=== PATIENT | female | born 1955 | race Caucasian/White ===

== ENCOUNTER 2016-10-06 09:47 | Outpatient (CLI) | payer MEDICAID | END 2016-10-06 09:48 | disposition home or self-care (01) | DX: R73.01 Impaired fasting glucose (principal); Z13.220 Encounter for screening for lipoid disorders; B19.20 Unspecified viral hepatitis C without hepatic coma; Z12.11 Encounter for screening for malignant neoplasm of colon; Z12.4 Encounter for screening for malignant neoplasm of cervix ==

== ENCOUNTER 2016-10-17 14:41 | Emergency (ER) | payer MEDICAID ==
[2016-10-17] MEDS ORDERED: oxyCOD/ACETAMIN 5 MG/325 MG TABLET PO STA (15:16)
[2016-10-17] MEDS ORDERED: oxyCOD/ACETAMIN 5 MG/325 MG TABLET PO ONE (15:29)
== END 2016-10-17 17:26 | disposition home or self-care (01) ==
DX: J40 Bronchitis, not specified as acute or chronic (principal); R07.9 Chest pain, unspecified; R05 Cough; J44.9 Chronic obstructive pulmonary disease, unspecified; B19.20 Unspecified viral hepatitis C without hepatic coma; M19.90 Unspecified osteoarthritis, unspecified site; M54.9 Dorsalgia, unspecified; G89.29 Other chronic pain; F17.200 Nicotine dependence, unspecified, uncomplicated
CPT/HCPCS: 36415; 71020; 80053; 83690; 84484; 85025; 85379; 99283; A9270

== ENCOUNTER 2017-04-19 14:00 | Outpatient (CLI) | payer MEDICAID | END 2017-04-19 14:01 | LOC: LAB.R 14:00 | PROVIDERS: ATTEND Nurse Practitioner Family | DX: R30.0 Dysuria (principal) | CPT/HCPCS: 87086 ==

== ENCOUNTER 2017-05-09 14:20 | Outpatient (CLI) | payer MEDICAID ==
--- NOTE | 2017-05-09 20:05 | XRAY Report ---
LEFT HIP AND PELVIS: 05/09/2017 CLINICAL INDICATION: Chronic pain. Frontal view of the hips and pelvis, and frog-leg lateral view of the left hip demonstrate mild left hip osteoarthritis. There is no evidence of acute fracture or dislocation. No radiopaque foreign latrice dy is seen in the soft tissues. IMPRESSION: MILD LEFT OSTEOARTHRITIS. JOB #: [id number] EXT JOB #:[id number]
== END 2017-05-09 14:21 | disposition home or self-care (01) ==
LOC: DI.S 14:20
PROVIDERS: ATTEND Nurse Practitioner Family
DX: M16.12 Unilateral primary osteoarthritis, left hip (principal)

== ENCOUNTER 2017-05-20 12:33 | Emergency (ER) | payer MEDICAID ==
[2017-05-20 12:49] VITALS: BP 134/83
== END 2017-05-20 12:49 | disposition left against medical advice (07) ==
LOC: ED 12:33
DX: R03.0 Elevated blood-pressure reading, without diagnosis of hypertension (principal); Z53.21 Procedure and treatment not carried out due to patient leaving prior to being seen by health care provider
CPT/HCPCS: 99281

== ENCOUNTER 2017-11-21 10:10 | Day surgery (SDC) | payer MEDICAID ==
[~2017-11-21 10:10] MED LIST: BUPIVACAINE 0.5% PF 10 ML VIAL ONE; ceFAZolin 2 GM/50 ML 2 GM/50 ML BAG IV ONE
[2017-11-21] MEDS ORDERED: LACTATED RINGERS 1,000 ML IV ONE (10:45)
[2017-11-21] MEDS ORDERED: BUPIVACAINE 0.5% PF 30 ML VIAL SUBQ ONE (12:11)
[2017-11-21] MEDS ORDERED: PROPOFOL 200 MG/20 ML VIAL IVP ONE (12:15)
[2017-11-21] MEDS ORDERED: ePHEDrine 50 MG/ML VIAL IVP ONE (12:15)
[2017-11-21] MEDS ORDERED: ONDANSETRON 4 MG/2 ML VIAL IVP ONE (12:15)
[2017-11-21] MEDS ORDERED: fentaNYL 100 MCG/2 ML VIAL IVP ONE (12:15)
[2017-11-21] MEDS ORDERED: MIDAZOLAM 2 MG/2 ML VIAL IVP ONE (12:15)
[2017-11-21] MEDS ORDERED: LIDOCAINE-MPF 2% 5 ML VIAL IM ONE (12:15)
[2017-11-21] MEDS ORDERED: DEXAMETHASONE 4 MG/ML VIAL IVP ONE (12:15)
[2017-11-21] MEDS ORDERED: KETOROLAC 30 MG/ML VIAL IVP ONE (12:15)
--- NOTE | 2017-11-21 12:58 | OPERATIVE REPORT ---
Operative Report - General Procedure Date: 11/21/17 Planned Procedure: Umbilical herniorrhaphy Pre-Op Diagnosis: Umbilical hernia Procedure Performed: Umbilical herniorrhaphy with mesh Post Op Diagnosis: Umbilical hernia - Procedure Note Primary Surgeon: Emre Marcial MD Anesthesia Provider: Raul Singh CRNA Anesthesia Technique: General ET tube, Local (30 mL 1/2% marcaine) IV Fluids (mL): 400 Estimated Blood Loss (mL): 2 Complications: None. - Other Other Information/Narrative: OPERATIVE DESCRIPTION/REPORT: After verbal and written informed consent was obtained detailing the risks of infection, bleeding requiring transfusion with its risks, nerve injury, and , and after I met with the patient confirming the surgery and the site of the surgery, the patient was brought to the operative suite and placed supine on the operating table. Great care was taken to avoid pressure points to prevent pressure necrosis or nerve injury. Monitoring devices were applied along with TEDs and pneumatic compressive stockings (to prevent DVT). The patient received preoperative antibiotics for surgical prophylaxis. Raul Singh sedated and anesthetized the patient for the entire procedure. The patient was prepped and draped in the usual sterile manner. With the patient draped my initials were clearly visible. A "time in" then confirmed that the patient was identified with 3 identifiers (name, date and medical record number), the history and physical was in the chart, the signed consent confirming the procedure was in the chart, the patient was in the correct position, the aforementioned prophylactic measures were in place or given, we had the correct personnel and equipment to complete the procedure and that anesthesia, surgery and nursing were given an opportunuty to express any concerns. With the agreement of everyone in the room, we proceeded with the operation. After injecting the area with % Marcaine, a standard midline intra-umbilical incision was made and dissection was carried down to the hernia sac using a combination of Metzenbaum scissors and Bovie electrocautery. The sac was cleared of overlying adherent tissue, and the fascial defect was delineated. The fascia was cleared of any adherent tissue for a distance 1.5 cm from the defect. The sac was resected using Bovie electrocautery. The defect was closed using a Ventralex ST hernia patch (Ref#[id number], Lot#[id number], use by date 2019-08-15). This was secured to the fascia using interrupted 2-0 PDS sutures superiorly and inferiorly utilizing the straps and trimming the excess strap. The fascia was then closed over the fascial defect using an figure of 8 2-0 PDS. The patient was then given an ``innie by suturing the back of the umbilicus to the fascia with the Monocryl whem the skin was closed. Meticulous hemostasis was obtained using Bovie electrocautery. The skin incision was approximated with a running subcuticular 4-0 Monocryl. After the prep was washed off, benzoin and steristrips were applied. A dressing was then applied. At this point a time out was performed that confirmed that all the counts were correct, the procedure that was performed, the blood loss, the IV fluids administered, and the patients condition. Having tolerated the procedure well , the patient was subsequently taken to recovery room in good and stable condition.
[2017-11-21] MEDS: HYDROmorphone 1 MG/ML SYRINGE ONE ×2 (13:02→13:14)
[2017-11-21] MEDS ORDERED: oxyCOD/ACETAMIN 5 MG/325 MG TABLET PO ONE (13:51)
[2017-11-21 15:11] VITALS: BP 118/77
== END 2017-11-21 10:11 | disposition home or self-care (01) ==
LOC: SDS 10:10
PROVIDERS: ATTEND Surgery
PROC: 0WUF0JZ Supplement Abdominal Wall with Synthetic Substitute, Open Approach (ICD-10-PCS; principal; 2017-11-21 11:15)
DX: K42.9 Umbilical hernia without obstruction or gangrene (principal); Z87.891 Personal history of nicotine dependence; J45.909 Unspecified asthma, uncomplicated; B19.20 Unspecified viral hepatitis C without hepatic coma; K21.9 Gastro-esophageal reflux disease without esophagitis
CPT/HCPCS: 49585; A9270; C1781; J0690; J1170; J7120

== ENCOUNTER 2019-06-17 14:26 | Outpatient (CLI) | payer MEDICAID ==
--- NOTE | 2019-06-17 15:16 | XRAY Report ---
Reason: OSTEOARTHRITIS OF LEFT HIP, PAIN IN RIGHT HIP Procedure Date: 06/17/2019 Accession Number: [id number] / [id number] Procedure: XR - Hips 2V BILAT CPT Code: FULL RESULT: EXAM: BILATERAL HIP RADIOGRAPHY EXAM DATE: 06/17/2019 02:59 PM. CLINICAL HISTORY: OSTEOARTHRITIS OF LEFT HIP, PAIN IN RIGHT HIP. COMPARISON: HIP W/PELVIS 2-3V LT 05/09/2017 2:42 PM. TECHNIQUE: 2 views each. FINDINGS: Bones: Normal bony pelvis. No fractures or bone lesion. Right Hip: Minimal narrowing of the weightbearing portion right hip joint space. No significant change. Left Hip: Similar appearing minimal superior joint space narrowing. No significant change. Soft Tissues: Normal. No soft tissue swelling. IMPRESSION: 1. Stable bilateral minimal joint space narrowing. 2. Otherwise negative examination. No suspicious bone lesion. RADIA
== END 2019-06-17 14:27 | disposition home or self-care (01) ==
LOC: DI 14:26
PROVIDERS: ATTEND Internal Medicine
DX: M16.0 Bilateral primary osteoarthritis of hip (principal)
CPT/HCPCS: 73521

== ENCOUNTER 2020-01-29 17:20 | Outpatient (CLI) | payer MEDICARE, BC | END 2020-01-29 17:21 | disposition home or self-care (01) | LOC: COV 17:20 | PROVIDERS: ATTEND Family Medicine | DX: R06.02 Shortness of breath (principal); R53.83 Other fatigue; J02.9 Acute pharyngitis, unspecified | CPT/HCPCS: 81599 ==

== ENCOUNTER 2020-02-24 10:46 | Emergency (ER) | payer MEDICARE, BC ==
--- NOTE | 2020-02-24 11:21 | ED Physician Documentation ---
PD HPI CHEST PAIN - Stated complaint Stated Complaint: SOA/RIB PX - Chief complaint Chief Complaint: Resp - History obtained from History obtained from: Patient - History of Present Illness Timing - onset: How many days ago (4) Timing - onset during: Light activity Timing - details: Abrupt onset (onset right lower rib pain with coughing and movement 4 days ago. Had done some lifting so presumed it was muscular. Had sneezing yesterday and pain abruptly worsened, and persists into today. Staying localized.) Quality: Sharp, Stabbing, Pain Location: Right chest (anterolateral chest at lower costal margin, not abdomen. No radiation to back.) Radiation: No: Back, Abdominal Improved by: Rest. No: ASA (has not tried other meds. tried head and cold and topical balm.) Worsened by: Inspiration, Movement, Palpation Associated symptoms: Shortness of air. No: Nausea, Vomiting, General Weakness, Palpitations, Cough (has mild intermittent cough and sneeze due to allergies. Does not feel she has URI.) Similar symptoms before: Has not had sx before Recently seen: Not recently seen Review of Systems Constitutional: denies: Fever, Chills Nose: reports: Rhinorrhea / runny nose (mild clear). denies: Congestion Throat: denies: Sore throat Respiratory: reports: Cough (mild intermittent) GI: denies: Abdominal Pain, Nausea, Vomiting, Diarrhea Skin: denies: Rash, Lesions Musculoskeletal: denies: Extremity swelling PD PAST MEDICAL HISTORY - Past Medical History Cardiovascular: None Respiratory: Asthma, COPD Endocrine/Autoimmune: None GI: GERD, Hepatitis : None HEENT: Chronic sinusitis, Other Psych: Depression, Anxiety, Panic attacks Musculoskeletal: Osteoarthritis, Osteoporosis, Fatigue, Chronic back pain Derm: None - Past Surgical History Past Surgical History: Yes /[employer]: section, Other - Present Medications Home Medications: Ambulatory Orders Medication Instructions Recorded Confirmed traZODone [Desyrel] 50 mg PO QPM 09/19/14 03/17/15 Albuterol Sulfate [Proventil Hfa 1 - 2 puffs IH Q4H PRN #1 10/17/16 11/21/17 Inhaler] hfa.aer.ad Magnesium 1 mg PO DAILY 11/20/17 11/21/17 Potassium Citrate [Potassium 99 meq PO DAILY 11/20/17 11/21/17 Citrate ER] Ibuprofen 2 PRN 11/21/17 L.acid/L.casei/B.bif/B.torie/Fos 1 DAILY PM 11/21/17 [Probiotic Blend Capsule] Hydrocodone/Acetaminophen [[place] 1 each PO Q6H PRN #20 tablet 02/24/20 5-325 Tablet] Naproxen 500 mg PO BID #20 tablet 02/24/20 - Allergies Allergies/Adverse Reactions: Allergies Allergy/AdvReac Type Severity Reaction Status Date / Time No Known Drug Allergies Allergy Verified 02/24/20 10:58 - Social History Does the pt smoke?: Yes Smoking Status: Current some day smoker Does the pt drink ETOH?: Yes Does the pt have substance abuse?: Yes - POLST Patient has POLST: No PD ED PE NORMAL - Vitals Vital signs reviewed: Yes - General General: Alert and oriented X 3, Well developed/nourished, Other (appears very uncomfortable. Splinting/holding RL chest with hand. guarding movement and deep breathing. ) - HEENT HEENT: Pharynx benign - Neck Neck: Supple, no meningeal sign, No adenopathy - Cardiac Cardiac: RRR, No murmur - Respiratory Respiratory: Clear bilaterally, Other (tender lower costal margin anterolateral area. No rash nor sores. Back not tender. Skin not tender to light touch. ) - Abdomen Abdomen: Soft, Non tender - Extremities Extremities: No edema, No calf tenderness / cord - Neuro Neuro: Alert and oriented X 3, No motor deficit, Normal speech Results - Vitals Vitals: Vital Signs - 24 hr 02/24/20 13:28 Temperature 37.0 C Heart Rate 75 Respiratory 20 Rate Blood Pressure 165/94 H O2 Saturation 95 Oxygen O2 Source Room air - Rads (name of study) chest with ribs Radiology: Prelim report reviewed (no acute process), See rad report PD MEDICAL DECISION MAKING - ED course Complexity details: re-evaluated patient (xray okay. Feeling much improved with IM meds here. ), considered differential (seems costochondral. No rash nor sores to suggest shingles nor skin lesion. ), d/w patient Departure - Departure Disposition: 01 Home, Self Care Clinical Impression: Right-sided chest wall pain Condition: Stable Record reviewed to determine appropriate education?: Yes Instructions: ED Chest Pain Costochondritis Prescriptions: Hydrocodone/Acetaminophen [[place] 5-325 Tablet] 1 each PO Q6H PRN #20 tablet PRN Reason: Pain Naproxen 500 mg PO BID #20 tablet Comments: Activity as tolerated. Avoid heavy lifting or push pull to decrease stress at the chest wall muscles. Use an anti-inflammatory such as naproxen twice daily for the next 7 to 10 days. Add Tylenol or hydrocodone as needed for pain. Your chest x-ray appeared normal. I would anticipate improvement over several days and resolution by 4 to 5 days. Recheck if not better in that timeframe or if other symptoms develop such as cough, fever, rash, other concerns. Discharge Date/Time: 02/24/20 13:32
[2020-02-24] MEDS ORDERED: KETOROLAC 30 MG/ML VIAL IM STA (11:55)
[2020-02-24] MEDS ORDERED: HYDROmorphone 2 MG/ML VIAL IM STA (11:55)
--- NOTE | 2020-02-24 12:38 | XRAY Report ---
Reason: right pleuritic pain lower anterolateral with snee Procedure Date: 02/24/2020 Accession Number: [id number] / [id number] Procedure: XR - Ribs w/PA Chest RT CPT Code: Final Report FULL RESULT: PROCEDURE: Ribs w/PA Chest RT INDICATIONS: right pleuritic pain lower anterolateral with sneezed TECHNIQUE: 2 views of the right ribs were acquired, along with a single view chest. COMPARISON: CXR 02/24/2020 FINDINGS: Surgical changes and devices: None. Bones and chest wall: No displaced right-sided rib fractures. No suspicious bony lesions. Overlying soft tissues appear unremarkable. Lungs and pleura: No pleural effusions or pneumothorax. Lungs appear clear. Mediastinum: Mediastinal contours appear normal. Heart size is normal. IMPRESSION: No displaced right-sided rib fractures. No acute cardiopulmonary abnormality. Reviewed by: Roland Martinez MD on 02/24/2020 12:37 PM PDT Approved by: Roland Martinez MD on 02/24/2020 12:37 PM PDT Station ID: [id number]
[2020-02-24 13:29] VITALS: BP 165/94
== END 2020-02-24 13:32 | disposition home or self-care (01) ==
LOC: ED 10:46
DX: R07.89 Other chest pain (principal); F17.200 Nicotine dependence, unspecified, uncomplicated
CPT/HCPCS: 71101; 96372; 99283; 99284; J1170

== ENCOUNTER 2020-11-20 09:25 | Outpatient (CLI) | payer MEDICARE, BC ==
[2020-11-20 09:55] LABS: BASOPHILS % (AUTO) 0.7 %; EOSINOPHILS # (AUTO) 0.2 10^3/uL (0.0-0.7); EOSINOPHILS % (AUTO) 5.2 %; HCT - HEMATOCRIT 41.5 % (37.0-47.0); HGB - HEMOGLOBIN 13.9 g/dL (12.0-16.0); LYMPHOCYTES # (AUTO) 1.7 10^3/uL (1.5-3.5); LYMPHOCYTES % (AUTO) 37.7 %; MEAN CORPUSCULAR HGB CONC 33.5 g/dL (32.0-36.0); MEAN CORPUSCULAR VOLUME 98.6 fL (81.0-99.0); MEAN PLATELET VOLUME 9.7 fL (7.9-10.8); MONOCYTES # (AUTO) 0.4 10^3/uL (0.0-1.0); MONOCYTES % (AUTO) 7.6 %; NEUTROPHILS # (AUTO) 2.3 10^3/uL (1.5-6.6); NEUTROPHILS % (AUTO) 48.8 %; PLT - PLATELET COUNT 214 10^3/uL (130-450); RED BLOOD COUNT 4.21 10^6/uL (4.20-5.40); RED CELL DISTRIBUTION WIDTH 13.5 % (12.0-15.0); WHITE BLOOD COUNT 4.6 x10^3/uL (4.8-10.8)
[2020-11-20 10:14] LABS: ALBUMIN 4.2 g/dL (3.2-5.5); ALBUMIN/GLOBULIN RATIO 1.7 (1.0-2.2); ALKALINE PHOSPHATASE 42 IU/L (42-121); ALT ALANINE AMINOTRANSFERASE 14 IU/L (10-60); AST ASPARTATE AMINOTRANSFERASE 15 IU/L (10-42); BUN - BLOOD UREA NITROGEN 17 mg/dL (6-20); CALCIUM 9.6 mg/dL (8.5-10.3); CARBON DIOXIDE - CO2 22 mmol/L (21-32); CHLORIDE 110 mmol/L (101-111); CHOL/HDL RATIO 2.5 (<4.4); CHOLESTEROL 171 mg/dL; GFR - MDRD 55 (>89); GLUCOSE 107 mg/dL (70-100); HDL CHOLESTEROL 69 mg/dL; LDL CHOLESTEROL,CALCULATED 92 mg/dL; LDL/HDL RATIO 1.3 (<4.4); POTASSIUM 4.4 mmol/L (3.5-5.0); SODIUM 142 mmol/L (135-145); TOTAL PROTEIN 6.7 g/dL (6.7-8.2); TRIGLYCERIDES 52 mg/dL; VLDL CHOLESTEROL 10 mg/dL
[2020-11-20 10:39] LABS: THYROID STIMULATING HORMONE 1.33 uIU/mL (0.34-5.60)
== END 2020-11-20 09:26 | disposition home or self-care (01) ==
LOC: LAB 09:25
PROVIDERS: ATTEND Physician Assistant
DX: M25.551 Pain in right hip (principal); G57.01 Lesion of sciatic nerve, right lower limb; M70.71 Other bursitis of hip, right hip; Z79.899 Other long term (current) drug therapy
CPT/HCPCS: 36415; 80053; 80061; 83721; 84443; 85025

== ENCOUNTER 2021-04-19 08:00 | Outpatient (CLI) | payer MEDICARE, BC | END 2021-04-19 23:59 | disposition home or self-care (01) | LOC: LAB.S 08:00 | PROVIDERS: ATTEND Physician Assistant Medical | DX: R50.9 Fever, unspecified (principal); B97.89 Other viral agents as the cause of diseases classified elsewhere; Z20.822 Contact with and (suspected) exposure to COVID-19 ==

== ENCOUNTER 2021-07-01 07:25 | Outpatient (CLI) | payer MEDICARE, BC | END 2021-07-01 07:26 | disposition home or self-care (01) | LOC: LAB 07:25 | PROVIDERS: ATTEND Internal Medicine | DX: I95.9 Hypotension, unspecified (principal) | CPT/HCPCS: 36415; 82533 ==

== ENCOUNTER 2022-07-26 16:29 | Outpatient (CLI) | payer MEDICARE, BC ==
[2022-07-26 17:03] LABS: BASOPHILS % (AUTO) 0.3 %; EOSINOPHILS # (AUTO) 0.2 10^3/uL (0.0-0.7); EOSINOPHILS % (AUTO) 2.5 %; HCT - HEMATOCRIT 41.8 % (37.0-47.0); HGB - HEMOGLOBIN 13.5 g/dL (12.0-16.0); LYMPHOCYTES # (AUTO) 1.9 10^3/uL (1.5-3.5); LYMPHOCYTES % (AUTO) 27.1 %; MEAN CORPUSCULAR HEMOGLOBIN 32.1 pg (27.0-31.0); MEAN CORPUSCULAR HGB CONC 32.3 g/dL (32.0-36.0); MEAN CORPUSCULAR VOLUME 99.3 fL (81.0-99.0); MEAN PLATELET VOLUME 9.9 fL (7.9-10.8); MONOCYTES # (AUTO) 0.5 10^3/uL (0.0-1.0); MONOCYTES % (AUTO) 6.4 %; NEUTROPHILS # (AUTO) 4.5 10^3/uL (1.5-6.6); NEUTROPHILS % (AUTO) 63.6 %; PLT - PLATELET COUNT 200 10^3/uL (130-450); RED BLOOD COUNT 4.21 10^6/uL (4.20-5.40); WHITE BLOOD COUNT 7.1 x10^3/uL (4.8-10.8)
[2022-07-26 17:22] LABS: ALBUMIN 4.2 g/dL (3.2-5.5); ALBUMIN/GLOBULIN RATIO 1.4 (1.0-2.2); ALKALINE PHOSPHATASE 58 IU/L (42-121); ALT ALANINE AMINOTRANSFERASE 13 IU/L (10-60); AST ASPARTATE AMINOTRANSFERASE 22 IU/L (10-42); BILIRUBIN,TOTAL 0.9 mg/dL (0.2-1.0); BUN - BLOOD UREA NITROGEN 16 mg/dL (6-20); CARBON DIOXIDE - CO2 19 mmol/L (21-32); CHLORIDE 107 mmol/L (101-111); CHOL/HDL RATIO 2.4 (<4.4); CHOLESTEROL 165 mg/dL; CREATININE 0.9 mg/dL (0.4-1.0); GFR - MDRD 62 (>89); GLUCOSE 101 mg/dL (70-100); HDL CHOLESTEROL 69 mg/dL; LDL CHOLESTEROL,CALCULATED 80 mg/dL; LDL/HDL RATIO 1.2 (<4.4); POTASSIUM 4.6 mmol/L (3.5-5.0); SODIUM 135 mmol/L (135-145); TOTAL PROTEIN 7.1 g/dL (6.7-8.2); TRIGLYCERIDES 79 mg/dL; VLDL CHOLESTEROL 16 mg/dL
[2022-07-26 17:33] LABS: THYROID STIMULATING HORMONE 1.8 uIU/mL (0.34-5.60)
== END 2022-07-26 16:30 | disposition home or self-care (01) ==
LOC: LAB 16:29
PROVIDERS: ATTEND Nurse Practitioner
DX: R53.83 Other fatigue (principal); Z13.220 Encounter for screening for lipoid disorders
CPT/HCPCS: 36415; 80053; 80061; 82607; 83721; 84443; 85025

== ENCOUNTER 2022-08-22 08:00 | Outpatient (CLI) | payer MEDICARE, BC | END 2022-08-22 23:59 | disposition home or self-care (01) | LOC: LAB 08:00 | PROVIDERS: ATTEND Registered Nurse | DX: R10.9 Unspecified abdominal pain (principal); L03.90 Cellulitis, unspecified | CPT/HCPCS: 36415; 80053; 83690; 85025; 86140; 87070; 87205 ==

== ENCOUNTER 2022-08-22 14:46 | Outpatient (CLI) | payer MEDICARE, BC ==
[2022-08-22 20:08] LABS: BASOPHILS % (AUTO) 0.6 %; EOSINOPHILS # (AUTO) 0.1 10^3/uL (0.0-0.7); EOSINOPHILS % (AUTO) 1.3 %; HCT - HEMATOCRIT 44.4 % (37.0-47.0); LYMPHOCYTES % (AUTO) 28.8 %; MEAN CORPUSCULAR HEMOGLOBIN 32.2 pg (27.0-31.0); MEAN CORPUSCULAR HGB CONC 31.5 g/dL (32.0-36.0); MEAN CORPUSCULAR VOLUME 102.1 fL (81.0-99.0); MEAN PLATELET VOLUME 10.4 fL (7.9-10.8); MONOCYTES # (AUTO) 0.4 10^3/uL (0.0-1.0); MONOCYTES % (AUTO) 6.5 %; NEUTROPHILS # (AUTO) 4.2 10^3/uL (1.5-6.6); NEUTROPHILS % (AUTO) 62.7 %; PLT - PLATELET COUNT 227 10^3/uL (130-450); RED BLOOD COUNT 4.35 10^6/uL (4.20-5.40); RED CELL DISTRIBUTION WIDTH 14.1 % (12.0-15.0); WHITE BLOOD COUNT 6.8 x10^3/uL (4.8-10.8)
[2022-08-22 20:35] LABS: ALBUMIN 3.9 g/dL (3.2-5.5); ALBUMIN/GLOBULIN RATIO 1.3 (1.0-2.2); ALKALINE PHOSPHATASE 52 IU/L (42-121); ALT ALANINE AMINOTRANSFERASE 13 IU/L (10-60); AST ASPARTATE AMINOTRANSFERASE 15 IU/L (10-42); BILIRUBIN,TOTAL 0.6 mg/dL (0.2-1.0); BUN - BLOOD UREA NITROGEN 20 mg/dL (6-20); CALCIUM 9.2 mg/dL (8.5-10.3); CARBON DIOXIDE - CO2 26 mmol/L (21-32); CHLORIDE 106 mmol/L (101-111); CREATININE 0.9 mg/dL (0.4-1.0); GFR - MDRD 62 (>89); GLUCOSE 85 mg/dL (70-100); LIPASE 50 U/L (22-51); POTASSIUM 4.4 mmol/L (3.5-5.0); SODIUM 139 mmol/L (135-145); TOTAL PROTEIN 6.9 g/dL (6.7-8.2)
[2022-08-22 21:24] LABS: CRP - C-REACTIVE PROTEIN < 1.0 mg/dL (0-1.0)
== END 2022-08-22 14:47 | disposition home or self-care (01) ==
LOC: LAB.S 14:46
PROVIDERS: ATTEND Registered Nurse
DX: R10.9 Unspecified abdominal pain (principal)
CPT/HCPCS: 36415; 80053; 83690; 85025; 86140

== ENCOUNTER 2022-08-25 17:42 | Outpatient (CLI) | payer MEDICARE, BC ==
[2022-08-25] MEDS ORDERED: iohexoL-300 100 ML VIAL ONE (17:57)
[2022-08-25] MEDS ORDERED: DIATRIZOATE MEGLU/DIATRIZO SOD 30 ML BOTTLE PO ONE ×2 (18:05→19:28)
[2022-08-25] MEDS ORDERED: iohexoL-300 100 ML VIAL IVP ONE (19:25)
--- NOTE | 2022-08-26 11:37 | CT Report ---
PROCEDURE: ABDOMEN/PELVIS W INDICATIONS: ABDOMINAL PX CONTRAST: 100mL Omni 300 TECHNIQUE: After the administration of oral and intravenous. contrast, 5 mm thick sections acquired from the kelsey phragms to the symphysis. 5 mm thick coronal and sagittal reformats were acquired. For radiation do se reduction, the following was used: automated exposure control, adjustment of mA and/or kV accordi ng to patient size. COMPARISON: 04/16/2015 FINDINGS: Image quality: Excellent. There is mild diffuse fatty infiltration of liver without evidence for focal liver lesions seen. Othe rwise spleen, adrenals, left kidney, pancreas, gallbladder, and visualized large and small bowel appe ar within normal limits. The appendix is visualized and appears normal. There is a small atrophic right kidney with cortical scarring present. This appears stable from prior examination. No significant adenopathy is identified within the abdomen or pelvis. No free fluid is present. The lung bases are clear. There is a mild atherosclerotic calcifications present. IMPRESSION: 1. No evidence for acute intra-abdominal process identified. 2. Atrophic appearing right kidney with cortical scarring stable from prior examination. 3. Mild diffuse fatty infiltration of liver. 4. Mild atherosclerotic calcifications. Reviewed by: Burton Henley MD on 08/26/2022 11:35 AM PST Approved by: Burton Henley MD on 08/26/2022 11:35 AM PST Station ID: [id number]
== END 2022-08-25 17:43 | disposition home or self-care (01) ==
LOC: DI 17:42
PROVIDERS: ATTEND Nurse Practitioner
DX: R10.9 Unspecified abdominal pain (principal); N26.1 Atrophy of kidney (terminal); K76.0 Fatty (change of) liver, not elsewhere classified; I70.90 Unspecified atherosclerosis
CPT/HCPCS: 74177; Q9963; Q9967

== ENCOUNTER 2023-09-21 15:08 | Outpatient (CLI) | payer MEDICARE, BC ==
[2023-09-21 17:43] LABS: BASOPHILS % (AUTO) 0.4 %; EOSINOPHILS # (AUTO) 0.2 10^3/uL (0.0-0.7); EOSINOPHILS % (AUTO) 1.9 %; HCT - HEMATOCRIT 43.9 % (37.0-47.0); HGB - HEMOGLOBIN 14.4 g/dL (12.0-16.0); LYMPHOCYTES # (AUTO) 2.2 10^3/uL (1.5-3.5); LYMPHOCYTES % (AUTO) 28.2 %; MEAN CORPUSCULAR HEMOGLOBIN 32.3 pg (27.0-31.0); MEAN CORPUSCULAR HGB CONC 32.8 g/dL (32.0-36.0); MEAN CORPUSCULAR VOLUME 98.4 fL (81.0-99.0); MEAN PLATELET VOLUME 10.6 fL (7.9-10.8); MONOCYTES # (AUTO) 0.5 10^3/uL (0.0-1.0); NEUTROPHILS # (AUTO) 4.9 10^3/uL (1.5-6.6); NEUTROPHILS % (AUTO) 63.1 %; PLT - PLATELET COUNT 257 10^3/uL (130-450); RED BLOOD COUNT 4.46 10^6/uL (4.20-5.40); RED CELL DISTRIBUTION WIDTH 14.1 % (12.0-15.0); WHITE BLOOD COUNT 7.8 x10^3/uL (4.8-10.8)
[2023-09-21 17:57] LABS: ALBUMIN 4.5 g/dL (3.2-5.5); ALBUMIN/GLOBULIN RATIO 1.7 (1.0-2.2); ALKALINE PHOSPHATASE 50 IU/L (42-121); ALT ALANINE AMINOTRANSFERASE 13 IU/L (10-60); AST ASPARTATE AMINOTRANSFERASE 15 IU/L (10-42); BILIRUBIN,TOTAL 0.6 mg/dL (0.2-1.0); BUN - BLOOD UREA NITROGEN 19 mg/dL (6-20); CALCIUM 9.6 mg/dL (8.5-10.3); CARBON DIOXIDE - CO2 27 mmol/L (21-32); CHLORIDE 105 mmol/L (101-111); CRP - C-REACTIVE PROTEIN < 0.5 mg/dL (<0.5); GFR - MDRD 55 (>89); GLUCOSE 89 mg/dL (74-104); SODIUM 139 mmol/L (135-145); TOTAL PROTEIN 7.1 g/dL (6.4-8.9)
== END 2023-09-21 15:09 | disposition home or self-care (01) ==
LOC: LAB.N 15:08
PROVIDERS: ATTEND Nurse Practitioner
DX: R51.9 Headache, unspecified (principal)
CPT/HCPCS: 36415; 80053; 85025; 85651; 86140

== ENCOUNTER 2023-12-25 17:18 | Outpatient (CLI) | payer MEDICARE, BC ==
--- NOTE | 2023-12-26 11:07 | XRAY Report ---
PROCEDURE: Ribs w/PA Chest 3+V RT INDICATIONS: COSTOCHONDRITIS RIGHT TECHNIQUE: 2 views of the ribs were acquired, along with a single view chest. COMPARISON: CT 08/25/2022. FINDINGS: Surgical changes and devices: None. Bones and chest wall: No fractures or dislocations. No suspicious bony lesions. Overlying soft tis sues appear unremarkable. Degenerative disc disease of the spine. Lungs and pleura: No pleural effusions or pneumothorax. Lungs appear clear. Mediastinum: Mediastinal contours appear normal. Heart size is normal. IMPRESSION: No displaced rib fracture or pneumothorax. Reviewed by: Az Montaño MD on 12/26/2023 11:05 AM PDT Approved by: Az Montaño MD on 12/26/2023 11:05 AM PDT Station ID: [id number]
== END 2023-12-25 17:19 | disposition home or self-care (01) ==
LOC: DI 17:18
PROVIDERS: ATTEND Physician Assistant Medical
DX: M94.0 Chondrocostal junction syndrome [Tietze] (principal)